=== PATIENT | female | born 1990 | race Caucasian/White ===

== ENCOUNTER 2016-12-15 18:38 | Emergency (ER) | payer MEDICARE, OTHER ==
[2016-12-15 19:16] VITALS: BP 130/86; PULSE 118; TEMP 98.9
--- NOTE | 2016-12-15 20:25 | ED ---
General Adult HPI - General Chief complaint: Upper Respiratory Infection Stated complaint: COUGH Time Seen by Provider: 12/15/16 20:20 Source: patient, RN notes reviewed Mode of arrival: wheelchair Limitations: no limitations - History of Present Illness Initial comments: Patient 46-year-old female who presents emergency room today with chief complaint of increased cough congestion over the last 3 days. Does admit to positive sputum production. Admits to throat. Scissors when she swallows. Admits to bodyaches. Admits to fever and chills. Patient denies any other complaints. Patient denies any recent shortness of breath, chest pain, back pain , abdominal pain, nausea or vomiting, numbness or tingling, dysuria or hematuria , constipation or diarrhea, headaches or visual changes, or any other complaints. - Related Data Home Medications Medication Instructions Recorded Confirmed Pregabalin [Lyrica] 50 mg PO TID 11/28/15 12/15/16 Topiramate [Trokendi Xr] 100 mg PO BID 11/28/15 12/15/16 Analgesic Rub 1 applicate TOPICAL DIRECTED PRN 05/25/16 12/15/16 Heat Rub 1 applicate TOPICAL DIRECTED PRN 05/25/16 12/15/16 Previous Rx's Medication Instructions Recorded HYDROcodone/APAP 5-325MG [[place] 1 tab PO Q12HR PRN #60 tab 05/25/16 5-325] Meclizine [Antivert] 25 mg PO TID PRN #90 tab 05/25/16 tiZANidine [Zanaflex] 2 mg PO DAILY #30 tab 05/25/16 guaiFENesin 400 mg PO Q4-6H #30 tablet 12/15/16 Allergies Allergy/AdvReac Type Severity Reaction Status Date / Time milk AdvReac Diarrhea Verified 12/15/16 19:16 Review of Systems ROS Statement: Those systems with pertinent positive or pertinent negative responses have been documented in the HPI. ROS Other: All systems not noted in ROS Statement are negative. Past Medical History Past Medical History: Asthma Additional Past Medical History / Comment(s): Hx migraines, irregular heartbeat, History of Any Multi-Drug Resistant Organisms: None Reported Past Surgical History: Cholecystectomy Additional Past Surgical History / Comment(s): PAIN CLINIC PROCEDURES Past Anesthesia/Blood Transfusion Reactions: No Reported Reaction Past Psychological History: No Psychological Hx Reported Smoking Status: Never smoker Past Alcohol Use History: None Reported Past Drug Use History: None Reported - Past Family History Father Family Medical History: Cancer Additional Family Medical History / Comment(s): Prostate Cancer General Exam - General Exam Comments Initial Comments: General: The patient is awake and alert, in no distress, and does not appear acutely ill. Eye: Pupils are equal, round and reactive to light, extra-ocular movements are intact. No nystagmus. There is normal conjunctiva bilaterally. No signs of icterus. Ears, nose, mouth and throat: There are moist mucous membranes and no oral lesions. Neck: The neck is supple, there is no tenderness or JVD. Cardiovascular: There is a regular rate and rhythm. No murmur, rub or gallop is appreciated. Respiratory: Lungs are clear to auscultation, respirations are non-labored, breath sounds are equal. No wheezes, stridor, rales, or rhonchi. Musculoskeletal: Normal ROM, no tenderness. Strength 5/5. Sensation intact. Pulses equal bilaterally 2+. Neurological: A&O x 3. CN II-XII intact, There are no obvious motor or sensory deficits. Coordination appears grossly intact. Speech is normal. Skin: Skin is warm and dry and no rashes or lesions are noted. Psychiatric: Cooperative, appropriate mood & affect, normal judgment. Limitations: no limitations Course Vital Signs 12/15/16 12/15/16 19:12 20:32 Temperature 98.9 F Pulse Rate 118 H Respiratory 20 16 Rate Blood Pressure 130/86 O2 Sat by Pulse 99 Oximetry Medical Decision Making - Medical Decision Making Chest x-ray negative. Influenza negative. Strep test negative. Patient was mostly a viral illness. Advised used Tylenol/ibuprofen for pain fever. Will be given cough suppressant. - Lab Data Lab Results 12/15/16 12/15/16 Range/Units 20:30 20:30 Influenza Type A RNA Not Detected (Not Detectd) Influenza Type B (PCR) Not Detected (Not Detectd) Group A Strep Rapid Negative (Negative) Disposition Clinical Impression: Acute bronchitis Disposition: HOME SELF-CARE Condition: Good Instructions: Upper Respiratory Infection (ED) Additional Instructions: Please use medication as discussed. Please follow-up with family doctor in the next 2 days of symptoms have not improved. Please return to emergency room if the symptoms increase or worsen or for any other concerns. Prescriptions: guaiFENesin 400 mg PO Q4-6H #30 tablet Time of Disposition: 21:23
[2016-12-15 20:33] VITALS: RESP 16
--- NOTE | 2016-12-15 20:54 | XR ---
EXAMINATION TYPE: XR chest 2V DATE OF EXAM: 12/15/2016 8:38 PM COMPARISON: 12/23/2012 HISTORY: Cough and congestion TECHNIQUE: Frontal and lateral views of the chest are obtained. FINDINGS: Heart and mediastinum are normal. Lungs are clear. Diaphragm is normal. Bony thorax is int act. IMPRESSION: Normal chest. No change.
== END 2016-12-15 22:14 | disposition home or self-care (01) ==
LOC: EC 18:38
DX: J20.9 Acute bronchitis, unspecified (principal); Z79.899 Other long term (current) drug therapy; Z79.82 Long term (current) use of aspirin; Z91.011 Allergy to milk products
CPT/HCPCS: 71020; 87081; 87430; 87502; 99283

== ENCOUNTER 2018-11-16 15:07 | Emergency (ER) | payer MEDICARE, OTHER ==
[2018-11-16 15:21] VITALS: RESP 18
[2018-11-16] MEDS ORDERED: diphenhydrAMINE 50 MG/ML 1 ML VIAL IVP STA ×2 (15:38→16:34)
[2018-11-16] MEDS ORDERED: SODIUM CHLORIDE 0.9% 2,000 ML IV STA (15:38)
[2018-11-16] MEDS ORDERED: METOCLOPRAMIDE 5 MG/ML 2 ML VIAL IVP STA ×2 (15:38→16:35)
--- NOTE | 2018-11-16 15:40 | ED ---
General Adult HPI - General Chief complaint: Recheck/Abnormal Lab/Rx Stated complaint: ingrown toe nail/pain on side Time Seen by Provider: 11/16/18 15:25 Source: patient, RN notes reviewed Mode of arrival: ambulatory Limitations: no limitations - History of Present Illness Initial comments: 28-year-old female presents to the emergency department for multiple complaints. Patient presents for abdominal pain in the right upper quadrant. Patient has a history of a cholecystectomy years ago. Patient states his pain started yesterday. Patient also complaining of migraine that are consistent with previous migraine history. Patient also complaining of decreased vision in the right eye. This has apparently been ongoing for weeks. Patient has been evaluated for this and has an appointment with an fabricator industrial furnace scheduled. Patient also complains of ingrown toenail of the right great toe. Patient denies fevers or chills at home. She is also complaining of left ear pain. Denies drainage. Patient has no other complaints at this time including shortness of breath, chest pain, abdominal pain, nausea or vomiting, headache, or visual changes. - Related Data Home Medications Medication Instructions Recorded Confirmed Cyclobenzaprine [Flexeril] 10 mg PO HS 11/16/18 11/16/18 HYDROcodone/APAP 5-325MG [[place] 1 tab PO Q6HR PRN 11/16/18 11/16/18 5-325] Pregabalin [Lyrica] 100 mg PO TID 11/16/18 11/16/18 Previous Rx's Medication Instructions Recorded Meclizine [Antivert] 25 mg PO TID PRN #90 tab 05/25/16 Cephalexin [Keflex] 500 mg PO Q6H 14 Days cap 11/16/18 Ofloxacin 0.3% Ophth Soln [Ocuflox 10 drops LEFT EAR DAILY 7 Days ml 11/16/18 Ophth Soln] Allergies Allergy/AdvReac Type Severity Reaction Status Date / Time milk AdvReac Diarrhea Verified 11/16/18 16:18 Review of Systems ROS Statement: Those systems with pertinent positive or pertinent negative responses have been documented in the HPI. ROS Other: All systems not noted in ROS Statement are negative. Past Medical History Past Medical History: Asthma Additional Past Medical History / Comment(s): Hx migraines, irregular heartbeat, History of Any Multi-Drug Resistant Organisms: None Reported Past Surgical History: Cholecystectomy Additional Past Surgical History / Comment(s): PAIN CLINIC PROCEDURES Past Anesthesia/Blood Transfusion Reactions: No Reported Reaction Past Psychological History: No Psychological Hx Reported Smoking Status: Never smoker Past Alcohol Use History: None Reported Past Drug Use History: None Reported - Past Family History Father Family Medical History: Cancer Additional Family Medical History / Comment(s): Prostate Cancer General Exam Limitations: no limitations General appearance: alert, in no apparent distress Head exam: Present: atraumatic, normocephalic, normal inspection Eye exam: Present: normal appearance, PERRL, EOMI. Absent: scleral icterus, conjunctival injection, periorbital swelling ENT exam: Present: normal exam, normal oropharynx, mucous membranes moist, TM's normal bilaterally (non erythematous, non buldging, intact). Absent: normal external ear exam (minimal edema noted to left ear canal) Neck exam: Present: normal inspection, full ROM. Absent: tenderness, meningismus, lymphadenopathy Respiratory exam: Present: normal lung sounds bilaterally. Absent: respiratory distress, wheezes, rales, rhonchi, stridor Cardiovascular Exam: Present: regular rate, normal rhythm, normal heart sounds. Absent: systolic murmur, diastolic murmur, rubs, gallop, clicks GI/Abdominal exam: Present: soft, tenderness (Tenderness noted to the right upper quadrant with minimal guarding. Nonrigid abdomen.), guarding (minimal in LUQ). Absent: distended, rebound, rigid Extremities exam: Present: other (ingrown lateral aspect of right great toe nail. no abscess of cellulitis infection) Neurological exam: Present: alert, oriented X3, CN II-XII intact, normal gait Psychiatric exam: Present: normal affect, normal mood Course Vital Signs 11/16/18 11/16/18 15:13 20:11 Temperature 98.2 F 98.7 F Pulse Rate 106 H 89 Respiratory 18 18 Rate Blood Pressure 100/72 134/92 O2 Sat by Pulse 95 98 Oximetry - Reevaluation(s) Reevaluation #1: 11/16/18 15:40 Guardian is in room next to patient. Guardian is refusing for patient to be evaluated until her stay is over and she can be in the room with her. Medical Decision Making - Medical Decision Making 28-year-old female presents to the emergency department for for multiple complaints. Patient claims of a migraine which is consistent with previous migraine. No neuro deficits on exam. Patient given Toradol which did help with her pain. Patient also complaining of decreased vision in the right eye. However patient is able to see out of the right eye when left eye is covered. This has been ongoing for weeks and patient already has an appointment with ophthalmology. Patient also complains of left ear pain. There is minimal edema noted in the left ear canal with a normal-appearing tympanic membrane. Patient given ofloxacin drops for this. Patient also complaining of upper abdominal pain with history of cholecystectomy. Patient had this done years ago. Pain is in the right upper quadrant. CBC CMP unremarkable. X-ray shows a nonacute abdomen. No free air. There was some difficulty obtaining urinalysis report from laboratory. However eventually after contacting them we did receive report which showed greater than 182 red blood cells with 137 white cells. At this time patient was reevaluated and did have some minimal right CVA tenderness. Rocephin and fluids given. CT was obtained to rule out septic stone which did not show any obstructing stone or ureteral stone. There is a small 2 mm interpolar kidney stone. Patient will be given Keflex 4 times a day and will follow up with primary care for this. I did attempt to remove the edge of the nail corner for her ingrown toenail and she will see podiatry for this. Discussed strict return parameters including fever or worsening symptoms for pyelonephritis. I did offer to remove the corner of the right great toenail as it is ingrown however patient refuses. - Lab Data Result diagrams: 11/16/18 15:57 11/16/18 15:57 Lab Results 11/16/18 11/16/18 11/16/18 Range/Units 15:57 15:57 16:30 WBC 10.4 (3.8-10.6) k/uL RBC 4.51 (3.80-5.40) m/uL Hgb 13.0 (11.4-16.0) gm/dL Hct 39.2 (34.0-46.0) % MCV 86.8 (80.0-100.0) fL MCH 28.9 (25.0-35.0) pg MCHC 33.2 (31.0-37.0) g/dL RDW 13.3 (11.5-15.5) % Plt Count 213 (150-450) k/uL Neutrophils % 66 % Lymphocytes % 25 % Monocytes % 4 % Eosinophils % 5 % Basophils % 0 % Neutrophils # 6.8 (1.3-7.7) k/uL Lymphocytes # 2.6 (1.0-4.8) k/uL Monocytes # 0.4 (0-1.0) k/uL Eosinophils # 0.5 (0-0.7) k/uL Basophils # 0.1 (0-0.2) k/uL Sodium 142 (137-145) mmol/L Potassium 3.6 (3.5-5.1) mmol/L Chloride 105 (98-107) mmol/L Carbon Dioxide 29 (22-30) mmol/L Anion Gap 8 mmol/L BUN 16 (7-17) mg/dL Creatinine 0.73 (0.52-1.04) mg/dL Est GFR (CKD-EPI)AfAm >90 (>60 ml/min/1.73 sqM) Est GFR (CKD-EPI)NonAf >90 (>60 ml/min/1.73 sqM) Glucose 93 (74-99) mg/dL Calcium 9.3 (8.4-10.2) mg/dL Total Bilirubin 0.6 (0.2-1.3) mg/dL AST 43 H (14-36) U/L ALT 68 H (9-52) U/L Alkaline Phosphatase 116 (38-126) U/L Total Protein 7.2 (6.3-8.2) g/dL Albumin 4.0 (3.5-5.0) g/dL Amylase 35 (30-110) U/L Lipase 40 (23-300) U/L Urine Color Red Urine Appearance Turbid H (Clear) Urine pH 6.0 (5.0-8.0) Ur Specific [employer] 1.027 (1.001-1.035) Urine Protein 1+ H (Negative) Urine Glucose (UA) Negative (Negative) Urine Ketones Trace H (Negative) Urine Blood Large H (Negative) Urine Nitrite Negative (Negative) Urine Bilirubin Negative (Negative) Urine Urobilinogen <2.0 (<2.0) mg/dL Ur Leukocyte Esterase Large H (Negative) Urine RBC >182 H (0-5) /hpf Urine WBC 137 H (0-5) /hpf Ur Squamous Epith Cells 72 H (0-4) /hpf Calcium Oxalate Crystal Many H (None) /hpf Urine Bacteria Many H (None) /hpf Urine Mucus Moderate H (None) /hpf Urine HCG, Qual (Not Detectd) 11/16/18 Range/Units 16:30 WBC (3.8-10.6) k/uL RBC (3.80-5.40) m/uL Hgb (11.4-16.0) gm/dL Hct (34.0-46.0) % MCV (80.0-100.0) fL MCH (25.0-35.0) pg MCHC (31.0-37.0) g/dL RDW (11.5-15.5) % Plt Count (150-450) k/uL Neutrophils % % Lymphocytes % % Monocytes % % Eosinophils % % Basophils % % Neutrophils # (1.3-7.7) k/uL Lymphocytes # (1.0-4.8) k/uL Monocytes # (0-1.0) k/uL Eosinophils # (0-0.7) k/uL Basophils # (0-0.2) k/uL Sodium (137-145) mmol/L Potassium (3.5-5.1) mmol/L Chloride (98-107) mmol/L Carbon Dioxide (22-30) mmol/L Anion Gap mmol/L BUN (7-17) mg/dL Creatinine (0.52-1.04) mg/dL Est GFR (CKD-EPI)AfAm (>60 ml/min/1.73 sqM) Est GFR (CKD-EPI)NonAf (>60 ml/min/1.73 sqM) Glucose (74-99) mg/dL Calcium (8.4-10.2) mg/dL Total Bilirubin (0.2-1.3) mg/dL AST (14-36) U/L ALT (9-52) U/L Alkaline Phosphatase (38-126) U/L Total Protein (6.3-8.2) g/dL Albumin (3.5-5.0) g/dL Amylase (30-110) U/L Lipase (23-300) U/L Urine Color Urine Appearance (Clear) Urine pH (5.0-8.0) Ur Specific [employer] (1.001-1.035) Urine Protein (Negative) Urine Glucose (UA) (Negative) Urine Ketones (Negative) Urine Blood (Negative) Urine Nitrite (Negative) Urine Bilirubin (Negative) Urine Urobilinogen (<2.0) mg/dL Ur Leukocyte Esterase (Negative) Urine RBC (0-5) /hpf Urine WBC (0-5) /hpf Ur Squamous Epith Cells (0-4) /hpf Calcium Oxalate Crystal (None) /hpf Urine Bacteria (None) /hpf Urine Mucus (None) /hpf Urine HCG, Qual Not Detected (Not Detectd) Disposition Clinical Impression: Pyelonephritis, IGTN (ingrowing toe nail), Otitis externa Disposition: HOME SELF-CARE Condition: Good Instructions (If sedation given, give patient instructions): Ingrown Nail (ED) , Otitis Externa (ED), Kidney Infection (ED) Additional Instructions: Please take antibiotics as directed. Please follow-up with primary care in 1-2 days. Follow-up with podiatry for ingrown toenail. Return to the emergency department if you have any worsening symptoms. Prescriptions: Cephalexin [Keflex] 500 mg PO Q6H 14 Days cap Ofloxacin 0.3% Ophth Soln [Ocuflox Ophth Soln] 10 drops LEFT EAR DAILY 7 Days ml Is patient prescribed a controlled substance at d/c from ED?: No Referrals: Nicolás Villa MD [Primary Care Provider] - 1-2 days Jerrod Ellison DPM [STAFF PHYSICIAN] - 1-2 days Time of Disposition: 19:49
[2018-11-16 16:11] LABS: Basophils # (A) 0.1 k/uL (0-0.2); Basophils % (A) 0 %; Eosinophils # (A) 0.5 k/uL (0-0.7); Eosinophils % (A) 5 %; HCT 39.2 % (34.0-46.0); Lymphocytes # (A) 2.6 k/uL (1.0-4.8); Lymphocytes % (A) 25 %; MCH 28.9 pg (25.0-35.0); MCHC 33.2 g/dL (31.0-37.0); MCV 86.8 fL (80.0-100.0); Mean Platelet Volume 8.9; Monocytes # (A) 0.4 k/uL (0-1.0); Monocytes % (A) 4 %; Neutrophils # (A) 6.8 k/uL (1.3-7.7); Neutrophils % (A) 66 %; Platelet Count 213 k/uL (150-450); RBC 4.51 m/uL (3.80-5.40); RDW 13.3 % (11.5-15.5); WBC 10.4 k/uL (3.8-10.6)
[2018-11-16 16:20] LABS: ALT 68 U/L (9-52); AST 43 U/L (14-36); Alkaline Phosphatase 116 U/L (38-126); Amylase 35 U/L (30-110); Anion Gap 8 mmol/L; Blood Urea Nitrogen 16 mg/dL (7-17); Calcium 9.3 mg/dL (8.4-10.2); Carbon Dioxide 29 mmol/L (22-30); Chloride 105 mmol/L (98-107); Glucose 93 mg/dL (74-99); Lipase 40 U/L (23-300); Potassium 3.6 mmol/L (3.5-5.1); Sodium 142 mmol/L (137-145); Total Bilirubin 0.6 mg/dL (0.2-1.3); Total Protein 7.2 g/dL (6.3-8.2)
[2018-11-16] MEDS ORDERED: KETOROLAC 30 MG/ML 1 ML VIAL IVP STA (16:34)
[2018-11-16] MEDS ORDERED: PANTOPRAZOLE 40 MG/10 ML VIAL IVP STA (16:35)
[2018-11-16] MEDS ORDERED: OFLOXACIN 0.3% OPHTH DROPS 5 ML BOTTLE LEFT EAR STA (16:38)
--- NOTE | 2018-11-16 18:05 | XR ---
EXAMINATION TYPE: XR abdomen acute w cxr DATE OF EXAM: 11/16/2018 COMPARISON: 06/10/2014 HISTORY: Left side pain TECHNIQUE: Chest x-ray with supine and upright abdomen FINDINGS: Heart and mediastinum are normal. Lungs are clear. Diaphragm is normal. There is no sign of intestina l obstruction or pneumoperitoneum. There are clips from cholecystectomy. Fecal pattern is normal. The re is no sign of a mass. IMPRESSION: Nonacute abdomen. No active cardiopulmonary disease. Normal heart. No change.
[2018-11-16 18:30] LABS: Appearance,Urine Turbid (Clear); Bacteria,Urine Many /hpf; Bilirubin,Urine Negative (Negative); Blood,Urine Large (Negative); Calcium Oxalate Crystals,Urine Many /hpf; Color,Urine Red; Glucose,Urine (UA) Negative (Negative); Ketones,Urine Trace (Negative); Leukocyte Esterase,Urine Large (Negative); Mucus,Urine Moderate /hpf; Nitrite,Urine Negative (Negative); Protein,Urine 1+ (Negative); RBC,Urine >182 /hpf (0-5); Specific Gravity,Urine 1.027 (1.001-1.035); Squamous Epithelial Cell,Urine 72 /hpf (0-4); Urobilinogen,Urine <2.0 mg/dL (<2.0); WBC,Urine 137 /hpf (0-5)
[2018-11-16] MEDS ORDERED: SODIUM CHLORIDE 0.9% 1,000 ML IV STA ×2 (18:45→19:19)
--- NOTE | 2018-11-16 19:22 | CT ---
EXAMINATION TYPE: CT abdomen pelvis wo con DATE OF EXAM: 11/16/2018 COMPARISON: 01/16/2014 HISTORY: rt lower quad pain x [address] DLP: 787.9 mGycm Automated exposure control for dose reduction was used. TECHNIQUE: Helical acquisition of images was performed from the lung bases through the pelvis. FINDINGS: Lung bases are clear. There is no pleural effusion. Heart size is normal. Liver spleen pancreas appear normal. There are clips from cholecystectomy. Bile ducts are not dilated . There is no adrenal mass. Kidneys show normal size and contour. There is no hydronephrosis. There is 2 mm calcification interpolar right kidney. Ureters are not dilated. There is no retroperitoneal astrid opathy. The bladder distends smoothly. Uterus is tilted to the right side. There is no inguinal herni a. There is no free fluid in the pelvis. There is no ascites. There is no mesenteric edema. Appendix appears normal. I see no intestinal wall thickening. There is no sign of free air. Uterus is antevert ed. Lumbar spine is intact. IMPRESSION: NEGATIVE CT SCAN OF THE ABDOMEN AND PELVIS. NORMAL APPENDIX. NONOBSTRUCTING TINY RIGHT RENAL CALCULUS .
[2018-11-16] MEDS ORDERED: CEPHALEXIN 500MG STARTER PACK 4 CAP BTL PO STA (19:59)
[2018-11-16 20:12] VITALS: BP 134/92; PULSE 89; TEMP 98.7
== END 2018-11-16 21:12 | disposition home or self-care (01) ==
LOC: EC 15:07
DX: L60.0 Ingrowing nail (principal); N12 Tubulo-interstitial nephritis, not specified as acute or chronic; H60.92 Unspecified otitis externa, left ear; N20.0 Calculus of kidney; R10.11 Right upper quadrant pain; H54.7 Unspecified visual loss; Z79.899 Other long term (current) drug therapy; Z91.011 Allergy to milk products; Z86.69 Personal history of other diseases of the nervous system and sense organs; Z90.49 Acquired absence of other specified parts of digestive tract
CPT/HCPCS: 99284; 96365; 96375 ×4; 36415; 80053; 82150; 83690; 85025; 81001; 81025; 87040; 87086; 74022; 74176; J1200; J2765; J0696; J1885; C9113

== ENCOUNTER 2019-01-01 15:39 | Emergency (ER) | payer MEDICARE, OTHER ==
[2019-01-01 15:47] VITALS: BP 108/71; PULSE 84; RESP 18; TEMP 98.2
[2019-01-01] MEDS ORDERED: CEPHALEXIN 500 MG CAP PO STA (16:49)
[2019-01-01] MEDS ORDERED: CEPHALEXIN 500MG STARTER PACK 4 CAP BTL PO STA (16:49)
--- NOTE | 2019-01-01 16:50 | ED ---
Skin/Abscess/FB HPI - General Chief complaint: Skin/Abscess/Foreign Body Stated complaint: Toe pain/cat attacked her toe Time Seen by Provider: 01/01/19 16:29 Source: patient, family Mode of arrival: wheelchair Limitations: no limitations - History of Present Illness Initial comments: This is a 28-year-old female the ER for evaluation. Patient complaining of left great toe pain. She states she didn't think he would've her nail and significantly cut her nail secondary to pain. She missed redness and erythema of the area no fevers denies trauma. Symptoms have been going on for about a week now. She is wearing a walking boot to help with the pain MD complaint: other (Erythema and pain to left great toe) -: week(s) Location: L foot Severity: moderate Quality: aching Consistency: constant Improves with: none Worsens with: none Context: none Associated symptoms: denies other symptoms - Related Data Home Medications Medication Instructions Recorded Confirmed HYDROcodone/APAP 5-325MG [[place] 1 tab PO Q6HR PRN 11/16/18 01/01/19 5-325] Pregabalin [Lyrica] 100 mg PO TID 11/16/18 01/01/19 Doxepin [SINEquan] 25 mg PO DAILY 01/01/19 01/01/19 Ibuprofen [Advil] 200 mg PO Q8H 01/01/19 01/01/19 Previous Rx's Medication Instructions Recorded Meclizine [Antivert] 25 mg PO TID PRN #90 tab 05/25/16 Cephalexin [Keflex] 500 mg PO Q6HR #40 cap 01/01/19 Naproxen [Naprosyn] 500 mg PO Q12HR PRN #30 tab 01/01/19 Allergies Allergy/AdvReac Type Severity Reaction Status Date / Time milk AdvReac Diarrhea Verified 01/01/19 17:07 Review of Systems ROS Statement: Those systems with pertinent positive or pertinent negative responses have been documented in the HPI. ROS Other: All systems not noted in ROS Statement are negative. Past Medical History Past Medical History: Asthma Additional Past Medical History / Comment(s): Hx migraines, irregular heartbeat, History of Any Multi-Drug Resistant Organisms: None Reported Past Surgical History: Cholecystectomy Additional Past Surgical History / Comment(s): PAIN CLINIC PROCEDURES Past Anesthesia/Blood Transfusion Reactions: No Reported Reaction Past Psychological History: No Psychological Hx Reported Smoking Status: Never smoker Past Alcohol Use History: None Reported Past Drug Use History: None Reported - Past Family History Father Family Medical History: Cancer Additional Family Medical History / Comment(s): Prostate Cancer General Exam - General Exam Comments Initial Comments: (Great toe does have self-induced nail avulsion about 50% as well as erythema to the distal tip, Limitations: no limitations General appearance: alert, in no apparent distress Head exam: Present: atraumatic, normocephalic, normal inspection Eye exam: Present: normal appearance, PERRL, EOMI. Absent: scleral icterus, conjunctival injection, periorbital swelling ENT exam: Present: normal exam, mucous membranes moist Neck exam: Present: normal inspection. Absent: tenderness, meningismus, lymphadenopathy Respiratory exam: Present: normal lung sounds bilaterally. Absent: respiratory distress, wheezes, rales, rhonchi, stridor Cardiovascular Exam: Present: regular rate, normal rhythm, normal heart sounds. Absent: systolic murmur, diastolic murmur, rubs, gallop, clicks GI/Abdominal exam: Present: soft, normal bowel sounds. Absent: distended, tenderness, guarding, rebound, rigid Extremities exam: Present: normal inspection, full ROM, normal capillary refill. Absent: tenderness, pedal edema, joint swelling, calf tenderness Back exam: Present: normal inspection Neurological exam: Present: alert, oriented X3, CN II-XII intact Psychiatric exam: Present: normal affect, normal mood Skin exam: Present: warm, dry, intact, normal color. Absent: rash Course Vital Signs 01/01/19 15:45 Temperature 98.2 F Pulse Rate 84 Respiratory 18 Rate Blood Pressure 108/71 O2 Sat by Pulse 98 Oximetry - Reevaluation(s) Reevaluation #1: Medical record is reviewed discussed at length with family with watch for ingrown toenail has toe is very short currently, Medical Decision Making - Medical Decision Making 28 female the ER for evaluation of left great toe cellulitis mild. X-rays negative. Patient has no identifiable abscess, patient can be discharged home - Radiology Data Radiology results: report reviewed (X-ray left foot is negative for acute disease), image reviewed Disposition Clinical Impression: Cellulitis of great toe, right Disposition: HOME SELF-CARE Condition: Good Instructions (If sedation given, give patient instructions): Cellulitis (ED), Ingrown Nail (ED) Prescriptions: Cephalexin [Keflex] 500 mg PO Q6HR #40 cap Naproxen [Naprosyn] 500 mg PO Q12HR PRN #30 tab PRN Reason: Pain Is patient prescribed a controlled substance at d/c from ED?: No Referrals: Nicolás Villa MD [Primary Care Provider] - 1-2 days
[2019-01-01] MEDS ORDERED: IBUPROFEN 800 MG TAB PO STA (16:53)
--- NOTE | 2019-01-01 17:27 | XR ---
PROCEDURE: XR foot complete RT - 3V DATE AND TIME: 01/01/2019 5:07 PM CLINICAL INDICATION: PHH; Pain TECHNIQUE: Department protocol COMPARISON: 10/17/2011 FINDINGS: There is no fracture or malalignment. There is mild great toe soft tissue swelling. No soft tissue emphysema. No radiopaque foreign body. IMPRESSION: Mild soft tissue swelling.
== END 2019-01-01 18:01 | disposition home or self-care (01) ==
LOC: EC 15:39
DX: L03.032 Cellulitis of left toe (principal); Z79.899 Other long term (current) drug therapy; Z91.011 Allergy to milk products
CPT/HCPCS: 99283

== ENCOUNTER 2019-04-02 16:58 | Emergency (ER) | payer MEDICARE, OTHER ==
[2019-04-02 17:24] VITALS: BP 106/77; PULSE 76; RESP 16; TEMP 98.2
[2019-04-02] MEDS ORDERED: KETOROLAC 30 MG/ML 1 ML VIAL IM STA (18:41)
--- NOTE | 2019-04-02 20:03 | CT ---
EXAMINATION TYPE: CT brain harshine wo con DATE OF EXAM: 04/02/2019 COMPARISON: 1011 HISTORY: headaches CT DLP: 1433.3 mGycm Automated exposure control for dose reduction was used. TECHNIQUE: CT scan of the head and cervical spine are performed without contrast. FINDINGS: There is no acute intracranial hemorrhage, mass effect, or midline shift identified. The ventricles and sulci are within normal limits in size. The globes are intact and the visualized sin uses are clear. Cervical spine is visualized in its entirety from C1 through upper thoracic levels and demonstrates s atisfactory alignment without evidence of acute fracture or dislocation. Prevertebral soft tissue ap pears within normal limits. The C1-C2 articulation is unremarkable. IMPRESSION: 1. There is no acute fracture or dislocation evident in the cervical spine. 2. No acute intracranial hemorrhage, mass effect, or midline shift is seen.
--- NOTE | 2019-04-02 20:33 | ED ---
General Adult HPI - General Chief complaint: Headache Stated complaint: Headaches Time Seen by Provider: 04/02/19 17:33 Source: patient Mode of arrival: wheelchair - History of Present Illness Initial comments: Patient is a 28-year-old female with development delay presents emergency Department with her mother for neck pain. Mother states her daughter slipped on black ice approximately one year ago and fell on her back which has been causing intermittent neck pain and headaches. Mother reports the patient has been examined by her primary care who is treating her for migraines and the neck pain with [place]. Mother states patient has an MRI scheduled. Patient reports the most recent headache has started to 3 days ago and is not resolving with home treatments. Mother states patient has never been examined by neurologist. Patient states the pain is located superior to the cervical prominence and is exacerbated with palpation and neck extension. Patient states the pain is alleviated with rest. Patient denies numbness or tingling. Patient denies dizziness, lightheadedness, blurry vision, nausea, vomiting or any headache. Patient denies muscle weakness in bilateral upper or lower extremities. Mother states she tried cold and warm compresses and a tender area as well as [place], all with minimal improvement. - Related Data Home Medications Medication Instructions Recorded Confirmed HYDROcodone/APAP 5-325MG [[place] 1 tab PO BID PRN 11/16/18 04/02/19 5-325] Pregabalin [Lyrica] 100 mg PO TID 11/16/18 04/02/19 Doxepin [SINEquan] 25 mg PO DAILY 01/01/19 04/02/19 Ibuprofen [Advil] 200 mg PO Q8H PRN 01/01/19 04/02/19 Allergies Allergy/AdvReac Type Severity Reaction Status Date / Time milk AdvReac Diarrhea Verified 04/02/19 17:46 Review of Systems ROS Statement: Those systems with pertinent positive or pertinent negative responses have been documented in the HPI. ROS Other: All systems not noted in ROS Statement are negative. Past Medical History Past Medical History: Asthma Additional Past Medical History / Comment(s): Hx migraines, irregular heartbeat, History of Any Multi-Drug Resistant Organisms: None Reported Past Surgical History: Cholecystectomy Additional Past Surgical History / Comment(s): PAIN CLINIC PROCEDURES Past Anesthesia/Blood Transfusion Reactions: No Reported Reaction Past Psychological History: No Psychological Hx Reported Smoking Status: Never smoker Past Alcohol Use History: None Reported Past Drug Use History: None Reported - Past Family History Father Family Medical History: Cancer Additional Family Medical History / Comment(s): Prostate Cancer General Exam Limitations: no limitations General appearance: alert, in no apparent distress Head exam: Present: atraumatic, normocephalic, normal inspection Eye exam: Present: normal appearance, PERRL, EOMI Pupils: Present: normal accommodation ENT exam: Present: normal exam Neck exam: Present: tenderness (Tenderness on palpation superior to the cervical prominence), other (Tenderness along the trapezius with palpation.). Absent: full ROM (Pain with neck extension) Respiratory exam: Present: normal lung sounds bilaterally Cardiovascular Exam: Present: regular rate, normal heart sounds Extremities exam: Present: full ROM (Limited bilateral arm abduction above 90 due to pain), other (Tremor noted in the right hand) Back exam: Present: vertebral tenderness (Cervical tenderness) Neurological exam: Present: alert, oriented X3 Psychiatric exam: Present: normal affect, normal mood Skin exam: Present: warm, intact, normal color Course Vital Signs 04/02/19 17:22 Temperature 98.2 F Pulse Rate 76 Respiratory 16 Rate Blood Pressure 106/77 O2 Sat by Pulse 99 Oximetry Medical Decision Making - Medical Decision Making Patient is a 28-year-old female presenting to emergency Department with neck pain. Patient has developed lower leg so she was not able to properly follow instructions during examination. Patient was given Toradol for pain control. Computed tomography scan of brain and C-spine is negative for acute fractures or dislocations. Based on history, physical examination imaging suspect the patient has never completely healed from her previous traumatic injury approximately one year ago. The traumatic incident was never treated medically, per mother. Mother advised to follow up with a neurosurgery who can best address her concerns.Strict return parameters were thoroughly discussed with mother and patient are understanding and agreeable. Case discussed with physician. Disposition Clinical Impression: Neck pain Disposition: HOME SELF-CARE Condition: Stable Instructions (If sedation given, give patient instructions): Acute Headache (ED) Additional Instructions: Please follow up with neurosurgery. Please apply cold or warm compress in the region with pain. Please alternate between Tylenol and ibuprofen for pain control. Is patient prescribed a controlled substance at d/c from ED?: No Referrals: Nicolás Villa MD [Primary Care Provider] - 1-2 days Yvonne Bailey DO [Doctor of Osteopathic Medicine] - 1-2 days Time of Disposition: 20:33
== END 2019-04-02 20:57 | disposition home or self-care (01) ==
LOC: EC 16:58
DX: M54.2 Cervicalgia (principal); R51 Headache; Z79.899 Other long term (current) drug therapy; Z91.011 Allergy to milk products
CPT/HCPCS: 72125; 70450; 99283; 96372; J1885

== ENCOUNTER → 2019-04-27 | Outpatient (CLI) | payer MEDICARE, OTHER ==
--- NOTE | 2019-04-29 14:56 | MR ---
EXAMINATION TYPE: MR cervical spine wo con DATE OF EXAM: 04/27/2019 COMPARISON: 07/15/2016 HISTORY: Neck pain, headaches, RUE radic TECHNIQUE: Multiplanar, multisequence images of the cervical spine were acquired. Cervical vertebra have normal spacing and alignment. There is no evidence of a fracture. Skull base i s intact. Brainstem appears intact. Cerebellum appears normal. Cervical spinal cord has normal signal pattern. There is no edema. There is no cervical spinal stenosis. There is minimal posterior disc bu lging at C4-5 on the right side and C5-6 in the midline. There is no spinal stenosis. IMPRESSION: Minimal disc bulging at C4-5 and C5-6 as above. No adverse change compared to old exam. There is decr eased disc bulging at C6-7 compared to old exam.
== END | disposition home or self-care (01) ==
LOC: RADMRIMAIN 21:12
PROVIDERS: ATTEND Internal Medicine
DX: M50.821 Other cervical disc disorders at C4-C5 level (principal)
CPT/HCPCS: 72141

== ENCOUNTER 2019-05-28 15:45 | Emergency (ER) | payer MEDICARE, OTHER ==
[2019-05-28 15:56] VITALS: BP 115/82; PULSE 84; RESP 18; TEMP 98.3
[2019-05-28] MEDS ORDERED: ONDANSETRON 4 MG/2 ML VIAL IVP STA (16:16)
[2019-05-28] MEDS ORDERED: KETOROLAC 30 MG/ML 1 ML VIAL IVP STA (16:16)
[2019-05-28] MEDS ORDERED: SODIUM CHLORIDE 0.9% 1,000 ML IV STA (16:16)
[2019-05-28 16:51] LABS: Basophils # (A) 0.1 k/uL (0-0.2); Basophils % (A) 1 %; Eosinophils # (A) 0.2 k/uL (0-0.7); Eosinophils % (A) 2 %; HCT 38.1 % (34.0-46.0); HGB 12.8 gm/dL (11.4-16.0); Lymphocytes # (A) 2.8 k/uL (1.0-4.8); Lymphocytes % (A) 28 %; MCH 28.4 pg (25.0-35.0); MCHC 33.7 g/dL (31.0-37.0); MCV 84.4 fL (80.0-100.0); Mean Platelet Volume 8.3; Monocytes # (A) 0.4 k/uL (0-1.0); Monocytes % (A) 5 %; Neutrophils # (A) 6.3 k/uL (1.3-7.7); Neutrophils % (A) 64 %; Platelet Count 244 k/uL (150-450); RBC 4.51 m/uL (3.80-5.40); RDW 13.3 % (11.5-15.5); WBC 9.9 k/uL (3.8-10.6)
--- NOTE | 2019-05-28 16:51 | ED ---
Abdominal Pain HPI - General Chief Complaint: Abdominal Pain Stated Complaint: kidney problems Time Seen by Provider: 05/28/19 16:00 Source: patient Mode of arrival: ambulatory Limitations: no limitations - History of Present Illness Initial Comments: Patient is a 29-year-old female presenting to the emergency Department with complaints of left-sided abdominal pain 2 days. Patient is mentally challenged and is here with her mother. Patient's does not like to speak a lot per mother. Mother states patient has been dealing with kidney stones on and off for the past month. Patient states left-sided abdominal pain started approximately 2 days ago and has been increasing. Patient has not been able to sleep very well and has not eaten in about 24 hours. Patient also reports nausea and vomiting. Patient denies fever, chills, diarrhea. Patient reports a bowel movement yesterday. No other complaints at this time. Upon arrival to ER, vital signs are stable, afebrile. - Related Data Home Medications Medication Instructions Recorded Confirmed HYDROcodone/APAP 5-325MG [[place] 1 tab PO BID PRN 11/16/18 04/02/19 5-325] Pregabalin [Lyrica] 100 mg PO TID 11/16/18 04/02/19 Doxepin [SINEquan] 25 mg PO DAILY 01/01/19 04/02/19 Ibuprofen [Advil] 200 mg PO Q8H PRN 01/01/19 04/02/19 Previous Rx's Medication Instructions Recorded Ibuprofen [Motrin] 600 mg PO Q8HR PRN #30 tab 05/28/19 Ondansetron Odt [Zofran Odt] 4 mg PO Q8HR PRN #10 tab 05/28/19 Allergies Allergy/AdvReac Type Severity Reaction Status Date / Time milk AdvReac Diarrhea Verified 04/02/19 17:46 Review of Systems ROS Statement: Those systems with pertinent positive or pertinent negative responses have been documented in the HPI. ROS Other: All systems not noted in ROS Statement are negative. Past Medical History Past Medical History: Asthma Additional Past Medical History / Comment(s): Hx migraines, irregular heartbeat, History of Any Multi-Drug Resistant Organisms: None Reported Past Surgical History: Cholecystectomy Additional Past Surgical History / Comment(s): PAIN CLINIC PROCEDURES Past Anesthesia/Blood Transfusion Reactions: No Reported Reaction Past Psychological History: No Psychological Hx Reported Smoking Status: Never smoker Past Alcohol Use History: None Reported Past Drug Use History: None Reported - Past Family History Father Family Medical History: Cancer Additional Family Medical History / Comment(s): Prostate Cancer General Exam - General Exam Comments Initial Comments: GENERAL: Well-appearing, well-nourished and in no acute distress. Patient is hugging and wanting to be underneath her personal blankets from home. HEAD: Atraumatic, normocephalic. EYES: Pupils equal round and reactive to light, extraocular movements intact, sclera anicteric, conjunctiva are normal. ENT: TMs normal, nares patent, oropharynx clear without exudates. Moist mucous membranes. NECK: Normal range of motion, supple without lymphadenopathy or JVD. LUNGS: Breath sounds clear to auscultation bilaterally and equal. No wheezes rales or rhonchi. HEART: Regular rate and rhythm without murmurs, rubs or gallops. ABDOMEN: Pain with palpation of the left side, left lower quadrant and left upper quadrant. Soft, normoactive bowel sounds. No guarding, no rebound. No masses appreciated. : Deferred EXTREMITIES: Normal range of motion, no pitting or edema. No clubbing or cyanosis. NEUROLOGICAL: Cranial nerves II through XII grossly intact. Normal speech, normal gait. PSYCH: Normal mood, normal affect. SKIN: Warm, Dry, normal turgor, no rashes or lesions noted. Limitations: no limitations Course Vital Signs 05/28/19 15:53 Temperature 98.3 F Pulse Rate 84 Respiratory 18 Rate Blood Pressure 115/82 O2 Sat by Pulse 98 Oximetry Medical Decision Making - Medical Decision Making Patient is a 29-year-old female with complaints of left sided abdominal pain 2 days. Patient is mentally challenged and is here with her mother. Patient also reports nausea and vomiting. Mother states there is a history of kidney stones. On exam patient has tenderness of the left abdominal area including upper and lower. Patient's vital signs are stable, afebrile. CBC, CMP are within normal limits. Lactic acid is 1.3. UA shows 2+ ketones only 2 WBCs. No evidence of infection. CT without contrast was performed and was negative. Normal appendix, no renal stone or obstruction. Patient was given fluids, Zofran, Toradol and reports mild improvement. At this time there is no signs of infection or source for her abdominal pain. This could be muscle skeletal in nature. Patient is stable for discharge at that time and will follow up with PCP. Patient's mother and patient is in agreement with this plan. Return parameters were discussed with the patient and mother and they both verbalize understanding. Case discussed with Dr. Vance. - Lab Data Result diagrams: 05/28/19 16:35 05/28/19 16:35 Lab Results 05/28/19 05/28/19 05/28/19 Range/Units 16:35 16:35 16:35 WBC (3.8-10.6) k/uL RBC (3.80-5.40) m/uL Hgb (11.4-16.0) gm/dL Hct (34.0-46.0) % MCV (80.0-100.0) fL MCH (25.0-35.0) pg MCHC (31.0-37.0) g/dL RDW (11.5-15.5) % Plt Count (150-450) k/uL Neutrophils % % Lymphocytes % % Monocytes % % Eosinophils % % Basophils % % Neutrophils # (1.3-7.7) k/uL Lymphocytes # (1.0-4.8) k/uL Monocytes # (0-1.0) k/uL Eosinophils # (0-0.7) k/uL Basophils # (0-0.2) k/uL Sodium 141 (137-145) mmol/L Potassium 4.0 (3.5-5.1) mmol/L Chloride 106 (98-107) mmol/L Carbon Dioxide 23 (22-30) mmol/L Anion Gap 12 mmol/L BUN 15 (7-17) mg/dL Creatinine 0.71 (0.52-1.04) mg/dL Est GFR (CKD-EPI)AfAm >90 (>60 ml/min/1.73 sqM) Est GFR (CKD-EPI)NonAf >90 (>60 ml/min/1.73 sqM) Glucose 82 (74-99) mg/dL Plasma Lactic Acid Je[place] (0.7-2.0) mmol/L Calcium 9.3 (8.4-10.2) mg/dL Total Bilirubin 1.1 (0.2-1.3) mg/dL AST 83 H (14-36) U/L ALT 65 H (9-52) U/L Alkaline Phosphatase 102 (38-126) U/L Total Protein 7.6 (6.3-8.2) g/dL Albumin 4.4 (3.5-5.0) g/dL Amylase 38 (30-110) U/L Lipase 34 (23-300) U/L Urine Color Yellow Urine Appearance Cloudy H (Clear) Urine pH 6.0 (5.0-8.0) Ur Specific [place] 1.034 (1.001-1.035) Urine Protein Trace H (Negative) Urine Glucose (UA) Negative (Negative) Urine Ketones 2+ H (Negative) Urine Blood Negative (Negative) Urine Nitrite Negative (Negative) Urine Bilirubin 1+ H (Negative) Urine Urobilinogen <2.0 (<2.0) mg/dL Ur Leukocyte Esterase Moderate H (Negative) Urine RBC 1 (0-5) /hpf Urine WBC 2 (0-5) /hpf Ur Squamous Epith Cells 11 H (0-4) /hpf Urine Mucus Occasional H (None) /hpf Urine HCG, Qual Not Detected (Not Detectd) 05/28/19 05/28/19 Range/Units 16:35 16:35 WBC 9.9 (3.8-10.6) k/uL RBC 4.51 (3.80-5.40) m/uL Hgb 12.8 (11.4-16.0) gm/dL Hct 38.1 (34.0-46.0) % MCV 84.4 (80.0-100.0) fL MCH 28.4 (25.0-35.0) pg MCHC 33.7 (31.0-37.0) g/dL RDW 13.3 (11.5-15.5) % Plt Count 244 (150-450) k/uL Neutrophils % 64 % Lymphocytes % 28 % Monocytes % 5 % Eosinophils % 2 % Basophils % 1 % Neutrophils # 6.3 (1.3-7.7) k/uL Lymphocytes # 2.8 (1.0-4.8) k/uL Monocytes # 0.4 (0-1.0) k/uL Eosinophils # 0.2 (0-0.7) k/uL Basophils # 0.1 (0-0.2) k/uL Sodium (137-145) mmol/L Potassium (3.5-5.1) mmol/L Chloride (98-107) mmol/L Carbon Dioxide (22-30) mmol/L Anion Gap mmol/L BUN (7-17) mg/dL Creatinine (0.52-1.04) mg/dL Est GFR (CKD-EPI)AfAm (>60 ml/min/1.73 sqM) Est GFR (CKD-EPI)NonAf (>60 ml/min/1.73 sqM) Glucose (74-99) mg/dL Plasma Lactic Acid Je[place] 1.3 (0.7-2.0) mmol/L Calcium (8.4-10.2) mg/dL Total Bilirubin (0.2-1.3) mg/dL AST (14-36) U/L ALT (9-52) U/L Alkaline Phosphatase (38-126) U/L Total Protein (6.3-8.2) g/dL Albumin (3.5-5.0) g/dL Amylase (30-110) U/L Lipase (23-300) U/L Urine Color Urine Appearance (Clear) Urine pH (5.0-8.0) Ur Specific [place] (1.001-1.035) Urine Protein (Negative) Urine Glucose (UA) (Negative) Urine Ketones (Negative) Urine Blood (Negative) Urine Nitrite (Negative) Urine Bilirubin (Negative) Urine Urobilinogen (<2.0) mg/dL Ur Leukocyte Esterase (Negative) Urine RBC (0-5) /hpf Urine WBC (0-5) /hpf Ur Squamous Epith Cells (0-4) /hpf Urine Mucus (None) /hpf Urine HCG, Qual (Not Detectd) Disposition Clinical Impression: Left sided abdominal pain, Nausea & vomiting Disposition: HOME SELF-CARE Condition: Stable Instructions (If sedation given, give patient instructions): Abdominal Pain ( ED) Additional Instructions: Please return to the Emergency Department if symptoms worsen or any other concerns. Follow-up with PCP as discussed. Prescriptions: Ibuprofen [Motrin] 600 mg PO Q8HR PRN #30 tab PRN Reason: Pain Ondansetron Odt [Zofran Odt] 4 mg PO Q8HR PRN #10 tab PRN Reason: Nausea Is patient prescribed a controlled substance at d/c from ED?: No Referrals: Nicolás Villa MD [Primary Care Provider] - 1-2 days
[2019-05-28 16:56] LABS: Appearance,Urine Cloudy (Clear); Bilirubin,Urine 1+ (Negative); Blood,Urine Negative (Negative); Color,Urine Yellow; Glucose,Urine (UA) Negative (Negative); Ketones,Urine 2+ (Negative); Leukocyte Esterase,Urine Moderate (Negative); Mucus,Urine Occasional /hpf; Nitrite,Urine Negative (Negative); Protein,Urine Trace (Negative); RBC,Urine 1 /hpf (0-5); Specific Gravity,Urine 1.034 (1.001-1.035); Squamous Epithelial Cell,Urine 11 /hpf (0-4); Urobilinogen,Urine <2.0 mg/dL (<2.0)
[2019-05-28 17:03] LABS: ALT 65 U/L (9-52); AST 83 U/L (14-36); African American GFR (CKD) >90 (>60 ml/min/1.73 sqM); Albumin 4.4 g/dL (3.5-5.0); Alkaline Phosphatase 102 U/L (38-126); Amylase 38 U/L (30-110); Anion Gap 12 mmol/L; Blood Urea Nitrogen 15 mg/dL (7-17); Calcium 9.3 mg/dL (8.4-10.2); Carbon Dioxide 23 mmol/L (22-30); Chloride 106 mmol/L (98-107); Glucose 82 mg/dL (74-99); Sodium 141 mmol/L (137-145); Total Bilirubin 1.1 mg/dL (0.2-1.3); Total Protein 7.6 g/dL (6.3-8.2)
--- NOTE | 2019-05-28 17:31 | CT ---
EXAMINATION TYPE: CT abdomen pelvis wo con DATE OF EXAM: 05/28/2019 COMPARISON: 11/16/2018 HISTORY: LLQ pain. CT DLP: 789.4 mGycm Automated exposure control for dose reduction was used. TECHNIQUE: Helical acquisition of images was performed from the lung bases through the pelvis. FINDINGS: Lung bases are clear. There is no pleural effusion. Heart is normal. Liver spleen pancreas appear normal. There are clips from cholecystectomy. Bile ducts are not dilated . There is no adrenal mass. The kidneys have normal size. There is no hydronephrosis. Ureters are not d ilated. There is no retroperitoneal adenopathy. Uterus is anteverted. Cul-de-sac is clear. Lumbar spi ne is intact. There is no inguinal hernia. There is no free fluid in the pelvis. There is contrast in the appendix which appears normal. There is no mesenteric edema. There is no sign of a bowel obstruc tion. There is no sign of free air or ascites. IMPRESSION: NEGATIVE CT SCAN ABDOMEN AND PELVIS. NORMAL APPENDIX. NO RENAL STONE OR OBSTRUCTION.
== END 2019-05-28 19:04 | disposition home or self-care (01) ==
LOC: EC 15:45
DX: R10.84 Generalized abdominal pain (principal); R11.2 Nausea with vomiting, unspecified; Z90.49 Acquired absence of other specified parts of digestive tract; Z79.899 Other long term (current) drug therapy; Z91.011 Allergy to milk products; Z87.442 Personal history of urinary calculi
CPT/HCPCS: 99284; 96374; 96375; 96361; 36415; 80053; 82150; 83605; 83690; 85025; 81001; 81025; 74176; J2405; J1885